=== PATIENT | female | born 1940 | race Caucasian/White ===

== ENCOUNTER → 2017-01-17 | Outpatient (CLI) | payer MEDICARE | END | disposition home or self-care (01) | LOC: PCVCCLINIC 13:32 | PROVIDERS: ATTEND Internal Medicine Cardiovascular Disease | DX: I34.0 Nonrheumatic mitral (valve) insufficiency (principal); I35.0 Nonrheumatic aortic (valve) stenosis; E78.5 Hyperlipidemia, unspecified; I10 Essential (primary) hypertension | CPT/HCPCS: 80061; 93005; G0463 ==

== ENCOUNTER → 2017-09-10 | Outpatient (CLI) | payer MEDICARE ==
--- NOTE | 2017-09-10 17:32 | PCVCIMAG ---
APPROVED REPORT Study performed: 09/10/2017 14:06:07 EXAM: Comprehensive 2D, Doppler, and color-flow Echocardiogram BSA: 1.83 HR: 62 bpm Rhythm: NSR w/ PACs Other Information Study Quality: Adequate Risk Factors: Cardiac Risk Factors: HTN Indications Mitral stenosis, mitral regurgitation, Aortic sclerosis 2D Dimensions LVEF(%): 67.57 (>50%) IVSd: 12.00 (7-11mm)LVOT Diam: 20.07 (18-24mm) LVDd: 35.25 mm PWd: 12.20 (7-11mm) LVDs: 22.31 (25-40mm) Left Atrium: 46.53 (27-40mm) Aortic Root: 31.21 mm LV Single Plane 4CH: 69.49 % LV Single Plane 2CH: 62.80 %Ross's LVEF: 66.14 % Biplane EF: 66.5 % Volumes Left Atrial Volume (Systole) Single Plane 4CH: 79.95 mLSingle Plane 2CH: 76.21 mL LA ESV Index: 48.00 mL/m2 Aortic Valve AoV Peak Vince.: 2.01 m/s AO Peak Gr.: 14.48 mmHgLVOT Max P.18 mmHg AO Mean Gr.: 9.15 mmHgLVOT Mean P.61 mmHg AO V2 Mean: 1.44 m/sLVOT Max V: 1.19 m/s AO V2 VTI: 47.41 cm MATTY (VTI): 1.71 [id number] V1 VTI: 25.68 cm MATTY Vmax: 1.86 cm2 Mitral Valve MV Peak Gr.: 16.22 mmHg MV Mean Gr.: 4.40 mmHgE/A Ratio: 0.7 MV Decel. Time: 436.80 ms MV E Max Vince.: 1.23 m/s MV A Vince.: 1.74 m/s MV Max Vince.: 2.01 m/s MV VTI: 605.31 mm MVA VTI: 134.08 mm2 MV PHT: 126.67 ms MVA (PHT): 1.56 cm2 Pulmonary Valve PV Peak Vince.: 1.00 m/sPV Peak Gr.: 4.01 mmHg Pulmonary Vein P Vein S: 0.22 m/sP Vein A: 0.42 m/s P Vein D: 0.30 m/sP Vein A Dur.: 183.4 msec P Vein S/D Ratio: 0.73 Tricuspid Valve TR Peak Vince.: 2.44 m/s TR Peak Gr.: 23.77 mmHg Left Ventricle The left ventricle is normal size. There is normal LV segmental wall motion. Mild concentric left ventricular hypertrophy. Left ventricular systolic function is mildly hyperdynamic. LVEF is 65-70%. Grade I - abnormal relaxation pattern. Right Ventricle The right ventricle is normal size. The right ventricular systolic function is normal. Atria Left atrium is severely dilated. The right atrium size is normal. Aortic Valve Aortic valve is calcified and sclerotic without stenosis. No aortic regurgitation is present. There is no aortic valvular stenosis. Mitral Valve Mitral annular calcification is moderate to severe. The mitral valve leaflets are calcified. Mild mitral regurgitation. Mild to moderate mitral stenosis. MVA is 1.3 cm2 by continuity equationa and 1.6 cm2 by PHT. Tricuspid Valve The tricuspid valve is normal in structure. Mild tricuspid regurgitation with PAP of 31 mmHg. Pulmonic Valve The pulmonary valve is normal in structure. There is trivial pulmonic valvular regurgitation. Great Vessels The aortic root is normal in size. IVC is normal in size and collapses with >50% inspiration Pericardium There is no pericardial effusion. <Conclusion> The left ventricle is normal size. Mild concentric left ventricular hypertrophy. Left ventricular systolic function is mildly hyperdynamic. LVEF is 65-70%. Grade I - abnormal relaxation pattern. Left atrium is severely dilated. The right atrium size is normal. Aortic valve is calcified and sclerotic without stenosis. There is no aortic valvular stenosis. Mitral annular calcification is moderate to severe. The mitral valve leaflets are calcified. Mild mitral regurgitation. Mild tricuspid regurgitation with PAP of 31 mmHg. There is no pericardial effusion.
== END | disposition home or self-care (01) ==
LOC: PCVCIMAG 12:46
PROVIDERS: ATTEND Internal Medicine Cardiovascular Disease
DX: I08.3 Combined rheumatic disorders of mitral, aortic and tricuspid valves (principal); I10 Essential (primary) hypertension; E78.5 Hyperlipidemia, unspecified; M19.90 Unspecified osteoarthritis, unspecified site; Z79.899 Other long term (current) drug therapy; Z79.82 Long term (current) use of aspirin
CPT/HCPCS: 80061; 93005; 93306; G0463

== ENCOUNTER → 2018-06-10 | Outpatient (CLI) | payer MEDICARE | END | disposition home or self-care (01) | LOC: PCVCCLINIC 13:50 | PROVIDERS: ATTEND Internal Medicine Cardiovascular Disease | DX: I10 Essential (primary) hypertension (principal); E78.00 Pure hypercholesterolemia, unspecified; I34.0 Nonrheumatic mitral (valve) insufficiency; I34.2 Nonrheumatic mitral (valve) stenosis; I35.0 Nonrheumatic aortic (valve) stenosis; Z79.899 Other long term (current) drug therapy; Z88.8 Allergy status to other drugs, medicaments and biological substances; Z91.040 Latex allergy status | CPT/HCPCS: 80061; 93005; G0463 ==

== ENCOUNTER → 2019-02-12 | Outpatient (CLI) | payer MEDICARE ==
--- NOTE | 2019-02-13 16:02 | PCVCIMAG ---
APPROVED REPORT Study performed: 02/12/2019 13:38:00 EXAM: Comprehensive 2D, Doppler, and color-flow Echocardiogram Patient Location: Echo lab Status: routine BSA: 1.78 HR: 74 bpmBP: 160/80 mmHg Rhythm: NSR Other Information Study Quality: Adequate Risk Factors: Cardiac Risk Factors: Hyperlipidemia, HTN Indications Aortic Stenosis 2D Dimensions IVSd: 13.59 (7-11mm)LVOT Diam: 21.20 (18-24mm) LVDd: 30.45 mm PWd: 12.05 (7-11mm)Ascending Ao: 35.65 (22-36mm) LVDs: 27.71 (25-40mm) Left Atrium: 46.21 (27-40mm) Aortic Root: 26.43 mm LV Single Plane 4CH: 71.07 % Volumes Left Atrial Volume (Systole) Single Plane 4CH: 62.05 mLSingle Plane 2CH: 75.78 mL LA ESV Index: 40.00 mL/m2 Aortic Valve AoV Peak Vince.: 2.63 m/s AO Peak Gr.: 27.66 mmHgLVOT Max P.03 mmHg AO Mean Gr.: 17.38 mmHgLVOT Mean P.04 mmHg AO V2 Mean: 2.03 m/sLVOT Max V: 1.51 m/s AO V2 VTI: 59.68 cmLVOT Mean V: 1.07 m/s MATTY (VTI): 1.88 [id number] V1 VTI: 31.73 cm MATTY Vmax: 2.03 cm2 SV (LVOT): 111.94 mL Mitral Valve MV Peak Gr.: 16.92 mmHg MV Mean Gr.: 7.38 mmHg MV Decel. Time: 341.96 ms MV Max Vince.: 2.06 m/s MV Mean Vince.: 1.30 m/s MV VTI: 608.81 mm MVA VTI: 183.86 mm2 MV PHT: 128.65 ms MVA (PHT): 1.71 cm2 IVRT: 128.03 ms TDI Medial E' Vince.: 0.06 m/s Lateral E' Vince.: 0.06 m/s Pulmonary Valve PV Peak Gr.: 5.36 mmHg Pulmonary Vein P Vein S: 0.84 m/sP Vein A: 0.36 m/s P Vein D: 0.37 m/sP Vein A Dur.: 103.8 msec P Vein S/D Ratio: 2.27 Left Ventricle The left ventricle is normal size. Increase velocity in left ventricular out flow tract. There is normal LV segmental wall motion. There is normal left ventricular wall thickness. Left ventricular systolic function is normal. The left ventricular ejection fraction is within the normal range. LVEF is 60-65%. The left ventricular diastolic function is normal. Right Ventricle The right ventricle is normal size. The right ventricular systolic function is normal. Atria The left atrium size is normal. The right atrium size is normal. Aortic Valve Aortic valve leaflets are mildly thickened. No aortic regurgitation is present. Peak gradient is 28mmHg. Mean gradient is 17mmHg. Calculated aortic valve area is 1.9cm2. Mitral Valve Mild mitral annular calcification. Mild mitral regurgitation. No evidence of mitral valve stenosis. Tricuspid Valve The tricuspid valve is normal in structure. There is no tricuspid valve regurgitation noted. Pulmonic Valve The pulmonary valve is normal in structure. Trace pulmonic regurgitation. Great Vessels The aortic root is normal in size. IVC is normal in size and collapses >50% with inspiration. Pericardium There is no pericardial effusion. <Conclusion> The left ventricle is normal size. Increase velocity in left ventricular out flow tract. LVEF is 60-65%. The left ventricular diastolic function is normal. The right ventricle is normal size. The left atrium size is normal. Aortic valve leaflets are mildly thickened. Peak gradient is 28mmHg. Mean gradient is 17mmHg. Calculated aortic valve area is 1.9cm2. Mild mitral regurgitation. There is no tricuspid valve regurgitation noted. The aortic root is normal in size. There is no pericardial effusion.
== END | disposition home or self-care (01) ==
LOC: PCVCIMAG 13:27
PROVIDERS: ATTEND Internal Medicine Cardiovascular Disease
DX: I08.0 Rheumatic disorders of both mitral and aortic valves (principal); E78.00 Pure hypercholesterolemia, unspecified; I10 Essential (primary) hypertension
CPT/HCPCS: 93306